=== PATIENT | female | born 1975 | race African-American/Black ===

== ENCOUNTER 2018-10-05 05:17 | Emergency (ER) | payer MEDICAID, OTHER ==
[~2018-10-05] VITALS: Ht 167.6 cm; Wt 86.0 kg
[2018-10-05 05:40] VITALS: BP 143/80
[2018-10-05] MEDS ORDERED: ASPIRIN 81MG TABLET PO ONE (06:30)
[2018-10-05 06:34] LABS: HEMATOCRIT. 38.4 % (36.0-48.0); HEMOGLOBIN. 13.1 g/dL (12.0-16.0); LYMPHOCYTES % 40.5 % (20.0-50.0); MEAN CORPUSCULAR VOLUME 85.3 fL (81.0-99.0); MEAN PLATELET VOLUME 7.9 fl (7.4-10.4); NEUTROPHILS % 45.5 % (40.0-76.0); PLATELET 267 x1000/uL (130-400); RED CELL DISTRIBUTION WIDTH 13.8 % (11.6-14.6)
[2018-10-05 06:42] LABS: CHLORIDE 107 mEq/L (98-107)
== END 2018-10-05 07:41 | disposition home or self-care (01) ==
LOC: ER 05:17
DX: R07.9 Chest pain, unspecified (principal); I10 Essential (primary) hypertension; F41.9 Anxiety disorder, unspecified
CPT/HCPCS: 36415; 71045; 80053; 81025; 83880; 84484; 85025; 93005; 99284; Z7610

== ENCOUNTER 2019-09-04 18:33 | Emergency (ER) | payer MEDICAID, OTHER ==
[~2019-09-04] VITALS: Ht 167.6 cm; Wt 107.0 kg
[2019-09-04] MEDS ORDERED: IBUPROFEN 600MG TABLET PO ONE (20:15)
[2019-09-04 20:18] VITALS: BP 167/81
== END 2019-09-04 20:38 | disposition home or self-care (01) ==
LOC: ER 18:33
DX: M79.18 Myalgia, other site (principal); M25.511 Pain in right shoulder; F41.9 Anxiety disorder, unspecified; I10 Essential (primary) hypertension
CPT/HCPCS: 81025; 99282; 99283

== ENCOUNTER 2021-04-03 12:16 | Emergency (ER) | payer MEDICAID, OTHER ==
[~2021-04-03] VITALS: Ht 167.6 cm; Wt 125.0 kg
[2021-04-03] MEDS ORDERED: ONDANSETRON 4MG ODT PO ONE (12:45)
[2021-04-03] MEDS ORDERED: HYDROCODONE/ACETAMINOPHEN 5/325MG TABLET PO ONE (12:45)
[2021-04-03] MEDS ORDERED: IBUP-2030 MT (15:42)
[2021-04-03 16:15] VITALS: BP 124/91
== END 2021-04-03 16:20 | disposition home or self-care (01) ==
LOC: ER 12:16
DX: S89.91XA Unspecified injury of right lower leg, initial encounter (principal); J45.909 Unspecified asthma, uncomplicated; I10 Essential (primary) hypertension; V89.2XXA Person injured in unspecified motor-vehicle accident, traffic, initial encounter; Y93.89 Activity, other specified; Y92.89 Other specified places as the place of occurrence of the external cause; Y99.8 Other external cause status
CPT/HCPCS: 73590; 73610; 73630; 99284; Q0162

== ENCOUNTER 2022-11-27 21:03 | Emergency (ER) | payer MEDICAID ==
[~2022-11-27] VITALS: Ht 165.1 cm; Wt 111.0 kg
[~2022-11-27 21:03] MED LIST: IBUP-2030 MT
[2022-11-27 21:17] VITALS: O2SAT 99
[2022-11-27] MEDS ORDERED: KETOROLAC 60MG/2ML VIAL IM ONE (22:30)
[2022-11-27 22:31] VITALS: BP 164/97
[2022-11-28] MEDS ORDERED: LIDO700A15 TP (00:42)
[2022-11-28] MEDS ORDERED: NAPR-679 MT (00:42)
[2022-11-28 00:56] VITALS: PULSE 84; RESP 18; TEMP 98.3
== END 2022-11-28 00:57 | disposition home or self-care (01) ==
LOC: ER 21:03
DX: S16.1XXA Strain of muscle, fascia and tendon at neck level, initial encounter (principal); S09.90XA Unspecified injury of head, initial encounter; V49.9XXA Car occupant (driver) (passenger) injured in unspecified traffic accident, initial encounter; Y93.89 Activity, other specified; Y92.89 Other specified places as the place of occurrence of the external cause; Y99.8 Other external cause status
CPT/HCPCS: 81025; 70450; 72125; 96372; 99285; J1885; Z7610